=== PATIENT | female | born 1995 | race Caucasian/White ===

== ENCOUNTER → 2023-01-20 | Outpatient (CLI) | payer OTHER | LOC: M RAD 12:55 | PROVIDERS: ATTEND Advanced Practice Midwife | DX: Z34.02 Encounter for supervision of normal first pregnancy, second trimester (principal) ==

== ENCOUNTER 2023-06-10 07:33 | Inpatient (IN) | payer OTHER ==
[2023-06-10] VITALS (8 sets, daily range): BP systolic 132–145; BP diastolic 63–81
[~2023-06-10] VITALS: Ht 165.1 cm; Wt 89.9 kg
[2023-06-10] MEDS ORDERED: LACTATED RINGER'S 1000 ML IV STA (07:37)
[2023-06-10] MEDS ORDERED: METHYLERGONOVINE MALEATE 0.2MG/ML 1ML VIAL IM PRN (07:40)
[2023-06-10] MEDS ORDERED: CARBOPROST TROMETHAMINE 250 MCG/ML AMP IM PRN (07:40)
[2023-06-10] MEDS ORDERED: OXYTOCIN DRIP 30 UNITS in IV 1 EA IV PRN ×6 (07:40)
[2023-06-10] MEDS ORDERED: OXYTOCIN INJ 10UNITS/ML 1ML VIAL IM PRN (07:40)
[2023-06-10] MEDS ORDERED: TRANEXAMIC ACID INJection 1,000 MG in NS 100 ML IV PRN (07:40)
[2023-06-10] MEDS ORDERED: LIDOCAINE 1% MDV 20ML VIAL INFIL PRN (07:40)
[2023-06-10] MEDS ORDERED: PREN1CHW6 PO (08:48)
[2023-06-10] MEDS ORDERED: TUMS500C PO (08:48)
[2023-06-10 08:53] LABS: APPEARANCE, URINE CLEAR (CLEAR); BACTERIA, URINE AUTO 2+ (NEGATIVE); BILIRUBIN, URINE AUTO NEGATIVE (NEGATIVE); BLOOD, URINE BLOOD NEGATIVE (NEGATIVE); COLOR, URINE YELLOW (YELLOW); GLUCOSE, URINE (UA) AUTO NEGATIVE (NEGATIVE); KETONE, URINE AUTO NEGATIVE (NEGATIVE); LEUKOCYTE ESTERASE, URINE AUTO TRACE (NEGATIVE); MUCUS, URINE SMALL (NEGATIVE); NITRITE, URINE AUTO NEGATIVE (NEGATIVE); PROTEIN, URINE AUTO NEGATIVE (NEGATIVE); RBC, URINE AUTO 1 /HPF (0-3); SPECIFIC GRAVITY URINE AUTO 1.013 (1.002-1.035); SQUAMOUS EPITHELIAL CELL UR AU 1 /HPF (0-6); UROBILINOGEN, URINE AUTO 0.2 mg/dL (0.0-2.0); WBC, URINE AUTO 2 /HPF (0-3)
[2023-06-10 08:54] LABS: HEMATOCRIT 35.9 % (36.0-47.0); HEMOGLOBIN 12.7 g/dl (12.0-15.5); MEAN CORPUSCULAR HEMOGLOBIN 33.4 pg (27.0-33.0); MEAN CORPUSCULAR HGB CONC 35.4 g/dl (32.0-36.5); MEAN CORPUSCULAR VOLUME 94.5 fl (80.0-96.0); PLATELET COUNT, AUTOMATED 209 10^3/uL (150-450); WHITE BLOOD COUNT 10.9 10^3/uL (4.0-10.0)
[2023-06-10] MEDS ORDERED: HOME MED LIST COMPLETE! XX SCH (09:00)
[2023-06-10] MEDS: miSOPROStol 50MCG 1/2 TABLET PO SCH ×3 (09:00→17:14)
[2023-06-10 09:16] LABS: TOTAL PROTEIN,RANDOM URINE 19.4 MG/DL (0.0-14.0)
[2023-06-10 09:21] LABS: ALT/SGPT 18 U/L (7.0-40); AST/SGOT 19 U/L (<34); BILIRUBIN,TOTAL 0.4 MG/DL (0.3-1.2); CREATININE FOR GFR 0.57 MG/DL (0.55-1.30); GLOMERULAR FILTRATION RATE > 60.0 (>60); LDH LACTATE DEHYDROGENASE 200 U/L (120-246)
[2023-06-10 09:21] LABS: CREATININE,RANDOM URINE 81.8 MG/DL
[2023-06-10 09:36] LABS: URIC ACID 4.3 MG/DL (3.1-7.8)
[2023-06-10] MEDS: LR 1,000 ML IV SCH ×2 (15:40→23:40)
[2023-06-11] VITALS (68 sets, daily range): BP systolic 98–144; BP diastolic 48–90; TEMP 97.8; O2SAT 95–98
[2023-06-11] MEDS ORDERED: ONDANSETRON 4MG 2ML VIAL IV PRN ×3 (00:15→22:15)
[2023-06-11] MEDS ORDERED: NALOXONE INJ 0.4MG/1ML VIAL IV PRN ×3 (00:15→22:15)
[2023-06-11] MEDS ORDERED: ePHEDrine SULFATE 25 MG/5 ML(5MG/ML) SYRINGE IVP PRN (00:15)
[2023-06-11] MEDS ORDERED: diphenhydrAMINE 50MG/ML VIAL IV PRN ×2 (00:15→22:15)
[2023-06-11] MEDS ORDERED: EPIDURAL/PCA KEYS XX PRN (00:15)
[2023-06-11] MEDS ORDERED: LR 500 ML IV PRN (00:15)
[2023-06-11] MEDS ORDERED: OXYTOCIN DRIP 30 UNITS in IV 1 EA IV SCH ×2 (03:40→22:10)
[2023-06-11] MEDS ORDERED: LR 1,000 ML IV SCH ×2 (03:40→22:15)
[2023-06-11] MEDS: LR 1,000 ML IV SCH ×5 (03:42→23:40)
[2023-06-11] MEDS: FENTANYL/ROPIVACAINE/NACL BAG 100 ML EPIDURAL SCH ×3 (03:55→16:57)
[2023-06-11] MEDS ORDERED: AZITHROMYCIN INJ 500 MG, VIAL MATE ADAPTER 1 EACH in NS 250 ML IV ONE (19:45)
[2023-06-11] MEDS ORDERED: ceFAZolin SOD 2 GM in IV 1 EA IV ONE (19:45)
[2023-06-11] MEDS ORDERED: OXYTOCIN INJ 10UNITS/ML 1ML VIAL As Ordered ONE (20:09)
[2023-06-11] MEDS ORDERED: ONDANSETRON 4MG 2ML VIAL As Ordered ONE (20:09)
[2023-06-11] MEDS ORDERED: MORPHINE PRES-FREE INJ 10 MG/10 ML VIAL As Ordered ONE (20:10)
[2023-06-11] MEDS ORDERED: fentaNYL 100 MCG/2 ML INJECTION As Ordered ONE ×2 (20:16→21:33)
[2023-06-11] MEDS ORDERED: BICITRA 30ML SOLN UDC As Ordered ONE (20:20)
[2023-06-11] MEDS ORDERED: BICITRA 30ML SOLN UDC PO ONE (20:25)
[2023-06-11 21:15] LABS: CORD GAS ABE A -5.6; CORD GAS HCO3 A 22.6 MMOL/L; CORD GAS O2 SAT A 31.4 %; CORD GAS PCO2 A 54.2 mmHg; CORD GAS PH A 7.238 UNITS; CORD GAS PO2 A 17.1 mmHg; CORD GAS SBC A 18.3 MMOL/L; CORD GAS TCO2 A 24.3 MMOL/L
[2023-06-11 21:20] LABS: CORD GAS ABE V -6.6; CORD GAS HCO3 V 20.6 MMOL/L; CORD GAS O2 SAT V 80.5 %; CORD GAS PH V 7.26 UNITS; CORD GAS SBC V 18.8 MMOL/L; CORD GAS TCO2 V 22.1 MMOL/L
[2023-06-11] MEDS ORDERED: ePHEDrine SULFATE 25 MG/5 ML(5MG/ML) SYRINGE As Ordered ONE (21:24)
[2023-06-11] MEDS ORDERED: PHENYLephrine 500MCG 5ML (100MCG/ML) SYRINGE As Ordered ONE (21:24)
[2023-06-11] MEDS ORDERED: METHYLERGONOVINE MALEATE 0.2MG/ML 1ML VIAL IM PRN (22:10)
[2023-06-11] MEDS ORDERED: RHOGAM 300MCG (1500IU) INJ IM SCH (22:10)
[2023-06-11] MEDS ORDERED: oxyCODONE 5MG TAB PO PRN ×2 (22:10→22:15)
[2023-06-11] MEDS: ACETAMINOPHEN 500 MG TAB PO SCH (22:10)
[2023-06-11] MEDS ORDERED: fentaNYL 100 MCG/2 ML INJECTION IV PRN (22:15)
[2023-06-11] MEDS ORDERED: METOCLOPRAMIDE INJ 10MG/2ML VIAL IV PRN (22:15)
[2023-06-11] MEDS: SLF 3 ML SYR IV SCH (22:15)
[2023-06-11] MEDS ORDERED: **NOTE PATIENT COMMENT** MISC XX SCH (22:15)
[2023-06-12] VITALS (7 sets, daily range): BP systolic 104–130; BP diastolic 54–83; O2SAT 98–100
[2023-06-12] MEDS: ACETAMINOPHEN 500 MG TAB PO SCH ×4 (04:37→21:58)
[2023-06-12] MEDS: KETOROLAC 30 MG/ML 1ML VIAL IV SCH ×3 (04:37→16:06)
[2023-06-12] MEDS: LR 1,000 ML IV SCH ×4 (06:10→15:40)
[2023-06-12] MEDS: SLF 3 ML SYR IV SCH ×2 (06:15→14:15)
[2023-06-12 07:32] LABS: HEMATOCRIT 33.1 % (36.0-47.0); HEMOGLOBIN 11.5 g/dl (12.0-15.5); MEAN CORPUSCULAR HEMOGLOBIN 33.4 pg (27.0-33.0); MEAN CORPUSCULAR HGB CONC 34.7 g/dl (32.0-36.5); MEAN CORPUSCULAR VOLUME 96.2 fl (80.0-96.0); PLATELET COUNT, AUTOMATED 198 10^3/uL (150-450); RED BLOOD COUNT 3.44 10^6/uL (4.00-5.40); WHITE BLOOD COUNT 23.4 10^3/uL (4.0-10.0)
[2023-06-12] MEDS: PRENATAL VITAMINS CHEWABLE TABLET PO SCH (09:03)
[2023-06-12] MEDS: DOCUSATE SODIUM 100MG CAPSULE PO SCH ×2 (09:04→20:12)
[2023-06-12] MEDS: SIMETHICONE 80MG CHEW TAB PO PRN (20:12)
[2023-06-12] MEDS: oxyCODONE 5MG TAB PO PRN (20:13)
[2023-06-12] MEDS ORDERED: METOCLOPRAMIDE INJ 10MG/2ML VIAL IV PRN (22:14)
[2023-06-12] MEDS: IBUPROFEN 800 MG TAB PO SCH (23:09)
[2023-06-13] MEDS: SIMETHICONE 80MG CHEW TAB PO PRN (02:07)
[2023-06-13] MEDS: oxyCODONE 5MG TAB PO PRN ×2 (02:08→11:04)
[2023-06-13 02:10] VITALS: BP 119/53; O2SAT 96
[2023-06-13] MEDS: ACETAMINOPHEN 500 MG TAB PO SCH ×2 (04:27→10:41)
[2023-06-13 06:19] VITALS: BP 110/53; O2SAT 98
[2023-06-13] MEDS ORDERED: IBUP80TA PO (07:10)
[2023-06-13] MEDS ORDERED: COLA100C5 PO (07:10)
[2023-06-13] MEDS ORDERED: OXYC-517 PO (07:10)
[2023-06-13] MEDS ORDERED: ACET-683 PO (07:10)
[2023-06-13] MEDS: DOCUSATE SODIUM 100MG CAPSULE PO SCH (08:24)
[2023-06-13] MEDS: PRENATAL VITAMINS CHEWABLE TABLET PO SCH (08:24)
[2023-06-13] MEDS: IBUPROFEN 800 MG TAB PO SCH (08:25)
[2023-06-13] MEDS ORDERED: MEASLES,MUMPS,RUBELLA VACCINE INJ (MMR-II) SC.IMMUN ONE (09:00)
[2023-06-13 10:00] VITALS: BP 114/58; O2SAT 98
== END 2023-06-13 15:15 | disposition home or self-care (01) | DRG 773 ==
LOC: M LDI 07:33 → M OBS 06-11 23:22
PROVIDERS: ADMIT Obstetrics & Gynecology; ATTEND Obstetrics & Gynecology
PROC: 3E033VJ Introduction of Other Hormone into Peripheral Vein, Percutaneous Approach (ICD-10-PCS; 2023-06-10)
PROC: 10D00Z1 Extraction of Products of Conception, Low, Open Approach (ICD-10-PCS; principal; 2023-06-11 20:00)
DX: O48.0 Post-term pregnancy (principal); Z37.0 Single live birth; Z3A.41 41 weeks gestation of pregnancy; O62.0 Primary inadequate contractions